=== PATIENT | female | born 1975 | race Caucasian/White ===

== ENCOUNTER 2016-05-07 17:22 | Observation (INO) | payer OTHER ==
[2016-05-07] MEDS ORDERED: HYDROmorphone 1 MG/ML 1 ML SYRINGE IVP STA (18:47)
[2016-05-07] MEDS ORDERED: PROCHLORPERAZINE 5 MG TAB PO STA (18:47)
[2016-05-07] MEDS ORDERED: SODIUM CHLORIDE 0.9% 500 ML IV STA (18:47)
[2016-05-07 19:30] LABS: Anion Gap 9 mmol/L; Blood Urea Nitrogen 13 mg/dL (7-17); Calcium 9.5 mg/dL (8.4-10.2); Carbon Dioxide 22 mmol/L (22-30); Chloride 109 mmol/L (98-107); Glucose 99 mg/dL (74-99); Magnesium 2.3 mg/dL (1.6-2.3); Non-African American GFR(MDRD) >60 (>60 ml/min/1.73 sqM); Potassium 4.5 mmol/L (3.5-5.1); Sodium 140 mmol/L (137-145)
[2016-05-07] MEDS ORDERED: ONDANSETRON 4 MG/2 ML VIAL IVP STA (20:44)
--- NOTE | 2016-05-07 21:28 | CT ---
EXAMINATION TYPE: CT brain wo con DATE OF EXAM: 05/07/2016 9:18 PM COMPARISON: 08/22/2014 HISTORY: PT STATES OF MIGRAINE WITH VOMITING TODAY. CT DLP: 986.7 mGycm Automated exposure control for dose reduction was used. FINDINGS: Ventricles have normal size. There is a 2.5 x 1.5 cm area of hypodensity in the medial right occipita l lobe. There is no mass effect nor midline shift. There is no sign of intracranial hemorrhage. There is a 1.5 cm area of calcification within the medial posterior right occipital lobe convexity. The ca lvarium is intact.. IMPRESSION: There is right occipital lobe encephalomalacia with calcification that is stable compared to 5 and could relate to old infarct. This is also stable compared to 04/28/2011 CT scan. No acute intrac ranial abnormality.
--- NOTE | 2016-05-07 22:06 | ED ---
Headache HPI - General Chief Complaint: Headache Stated Complaint: Migraine Time Seen by Provider: 05/07/16 18:35 Mode of arrival: ambulatory Limitations: no limitations - History of Present Illness Initial Comments: Patient complains of a headache, as well as nausea or vomiting. She has a history of migraines. However, she feels like this is different from usual. The headache came on gradually. She does feel like this is as bad as her headaches normally get, however it is not any worse than usual. She has no change in vision or hearing. She has no neck pain or stiffness. She has no belly or back pain. She states the pain is worse with lights and loud noises. She has no trauma. She has no weakness. She has no trouble walking. - Related Data Home Medications Medication Instructions Recorded Confirmed Dextroamphetamine/Amphetamine 20 mg PO BID 08/22/14 05/07/16 [Adderall] Ibuprofen [Motrin] 600 mg PO Q6HR PRN 05/07/16 05/07/16 Topiramate [Topamax] 75 mg PO HS 05/07/16 05/07/16 Allergies Allergy/AdvReac Type Severity Reaction Status Date / Time No Known Allergies Allergy Verified 05/07/16 19:17 Review of Systems ROS Statement: Those systems with pertinent positive or pertinent negative responses have been documented in the HPI. ROS Other: All systems not noted in ROS Statement are negative. Past Medical History Past Medical History: CVA/TIA, GERD/Reflux, Thyroid Disorder Additional Past Medical History / Comment(s): MANY PROBLEMS SINCE A-V MALFORMATION WAS DISCOVERED: CHRONIC HEADACHES, STROKES, LOSS OF PERIPHERAL VISION. RECENTLY HAVING DIARRHEA/CONSTIPATION, NAUSEA, ABD PAIN, WT LOSS.. HX: PEPTIC ULCER. THYROID NODULES. HAS SOME DAMAGE FROM GAMMA KNIFE PROCEDURE. migraine History of Any Multi-Drug Resistant Organisms: None Reported Past Surgical History: Cholecystectomy Additional Past Surgical History / Comment(s): TREATMENT OF A-V MALFORMATION with a gamma knife Past Anesthesia/Blood Transfusion Reactions: Motion Sickness Past Psychological History: Depression Smoking Status: Current every day smoker Past Alcohol Use History: None Reported Past Drug Use History: None Reported General Exam Limitations: no limitations General appearance: alert, in no apparent distress Head exam: Present: atraumatic, normocephalic, normal inspection Eye exam: Present: normal appearance, PERRL, EOMI. Absent: scleral icterus, conjunctival injection, periorbital swelling ENT exam: Present: normal exam, mucous membranes moist Neck exam: Present: normal inspection. Absent: tenderness, meningismus, lymphadenopathy Respiratory exam: Present: normal lung sounds bilaterally. Absent: respiratory distress, wheezes, rales, rhonchi, stridor Cardiovascular Exam: Present: regular rate, normal rhythm, normal heart sounds. Absent: systolic murmur, diastolic murmur, rubs, gallop, clicks GI/Abdominal exam: Present: soft, normal bowel sounds. Absent: distended, tenderness, guarding, rebound, rigid Extremities exam: Present: normal inspection, full ROM, normal capillary refill. Absent: tenderness, pedal edema, joint swelling, calf tenderness Back exam: Present: normal inspection Neurological exam: Present: alert, oriented X3, CN II-XII intact Psychiatric exam: Present: normal affect, normal mood Skin exam: Present: warm, dry, intact, normal color. Absent: rash Course Vital Signs 05/07/16 17:34 Temperature 98.2 F Pulse Rate 82 Respiratory 18 Rate Blood Pressure 126/81 O2 Sat by Pulse 99 Oximetry Medical Decision Making - Medical Decision Making Patient presents with a severe headache. I do not believe she has an intracranial bleed, but this could be related to a mass. CAT scan of the head does not reveal any acute processes. Laboratory studies are within acceptable limits at this time. She is given multiple doses of antiemetics, as well as IV fluids and pain medication. She is not feeling any better. She continues to vomit in the emerge department. She will require admission overnight. - Lab Data Result diagrams: 05/07/16 19:01 Lab Results 05/07/16 Range/Units 19:01 Sodium 140 (137-145) mmol/L Potassium 4.5 (3.5-5.1) mmol/L Chloride 109 H (98-107) mmol/L Carbon Dioxide 22 (22-30) mmol/L Anion Gap 9 mmol/L BUN 13 (7-17) mg/dL Creatinine 0.87 (0.52-1.04) mg/dL Est GFR (MDRD) Af Amer >60 (>60 ml/min/1.73 sqM) Est GFR (MDRD) Non-Af >60 (>60 ml/min/1.73 sqM) Glucose 99 (74-99) mg/dL Calcium 9.5 (8.4-10.2) mg/dL Magnesium 2.3 (1.6-2.3) mg/dL Disposition Clinical Impression: Headache, Nausea and vomiting Disposition: ADMITTED IP TO THIS HOSP Condition: Fair Time of Disposition: 22:06
[2016-05-07] MEDS ORDERED: PROCHLORPERAZINE 5 MG TAB PO PRN (22:10)
[2016-05-07] MEDS ORDERED: NALOXONE 0.4 MG/ML 1 ML VIAL IV PRN (22:10)
[2016-05-07 22:13] LABS: Basophils % (A) 1 %; CHCM 34.6; Eosinophils # (A) 0.1 k/uL (0-0.7); Eosinophils % (A) 1 %; HCT 40.7 % (34.0-46.0); HGB 13.8 gm/dL (11.4-16.0); Luc # (Auto) 0.06; Luc % (Auto) 1; Lymphocytes # (A) 1.5 k/uL (1.0-4.8); Lymphocytes % (A) 20 %; MCH 31.4 pg (25.0-35.0); MCHC 33.8 g/dL (31.0-37.0); MCV 92.7 fL (80.0-100.0); Mean Platelet Volume 7.9; Monocytes # (A) 0.2 k/uL (0-1.0); Monocytes % (A) 3 %; Neutrophils # (A) 5.6 k/uL (1.3-7.7); Neutrophils % (A) 75 %; RBC 4.39 m/uL (3.80-5.40); RDW 12.4 % (11.5-15.5); WBC 7.4 k/uL (3.8-10.6); WBC (Perox) 7.93
[2016-05-07 23:37] VITALS: BMI 26.6
[2016-05-07] MEDS: MORPHINE SULFATE 4 MG/ML SYRINGE IV PRN (23:43)
[2016-05-08] MEDS: LORazepam 2 MG/ML SYRINGE IV PRN ×2 (00:11→20:47)
[2016-05-08] MEDS ORDERED: ONDANSETRON 4 MG/2 ML VIAL IVP PRN (08:18)
[2016-05-08] MEDS ORDERED: NON-FORMULARY DRUG (Dextroamphetamine/Amphetamine [Adderall] 20 MG) PO SCH (09:00)
[2016-05-08] MEDS: MORPHINE SULFATE 4 MG/ML SYRINGE IV PRN ×3 (10:01→20:46)
[2016-05-08] MEDS: FAMOTIDINE 20 MG TAB PO SCH ×2 (10:01→20:48)
--- NOTE | 2016-05-08 13:50 | P.HPIM ---
History of Present Illness H&P Date: 05/08/16 Chief Complaint: Severe headache with nausea and vomiting This is a 40-year-old female, patient of Dr. Mancia. 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 Also history of stroke, nicotine dependence , GERD and hypothyroidism. Patient states that she follows up at [facility] neurology for her migraines. In about a month ago she was started on Topamax. She reports over the last week's her headache has been more severe and she started having vomiting and nausea. She's having sensitivity to light and sound. She also started having facial numbness on the left side of her face and around her mouth and nose. When she contacted [facility] they felt the numbness and also some tingling in the hands and feet could be related to the Topamax. They are trying to wean her off of the Topamax. She denies any chest pain or shortness of breath.. Denies any bowel movement changes or urinary symptoms. Patient admitted to the observation unit. Neurology consulted. She had a computed tomography scan of the brain showing right occipital lobe encephalomalacia with calcification that is stable compared to 08/22/2014 and could relate to old infarct. No acute intracranial abnormality Review of Systems Please refer to HPI otherwise unremarkable Past Medical History Past Medical History: CVA/TIA, GERD/Reflux, Thyroid Disorder Additional Past Medical History / Comment(s): MANY PROBLEMS SINCE A-V MALFORMATION WAS DISCOVERED: CHRONIC HEADACHES, STROKES, LOSS OF PERIPHERAL VISION, HX:PEPTIC ULCER. THYROID NODULES. HAS SOME DAMAGE FROM GAMMA KNIFE PROCEDURE. SPENT FROM AGE 12 TO 17 IN [facility], [place] History of Any Multi-Drug Resistant Organisms: None Reported Past Surgical History: Cholecystectomy Additional Past Surgical History / Comment(s): TREATMENT OF A-V MALFORMATION with a gamma knife Past Anesthesia/Blood Transfusion Reactions: No Reported Reaction, Motion Sickness Past Psychological History: Depression Smoking Status: Current every day smoker Past Alcohol Use History: None Reported Past Drug Use History: None Reported - Past Family History Father Family Medical History: Congestive Heart Failure (CHF), Myocardial Infarction ( [place]) Mother Family Medical History: Diabetes Mellitus, Myocardial Infarction ([place]) Medications and Allergies Home Medications Medication Instructions Recorded Confirmed Type Dextroamphetamine/Amphetamine 20 mg PO BID 08/22/14 05/07/16 History [Adderall] Ibuprofen [Motrin] 600 mg PO Q6HR PRN 05/07/16 05/07/16 History Topiramate [Topamax] 75 mg PO HS 05/07/16 05/07/16 History Allergies Allergy/AdvReac Type Severity Reaction Status Date / Time No Known Allergies Allergy Verified 05/07/16 23:26 Physical Exam Vitals: Vital Signs Temp Pulse Pulse Resp BP BP Pulse Ox 05/08/16 12:00 98.6 F 76 14 103/66 96 05/08/16 08:00 97.7 F 70 18 105/68 97 05/08/16 04:00 97.7 F 68 16 115/68 95 05/07/16 23:47 16 05/07/16 23:10 98.4 F 80 16 146/87 99 Intake and Output 05/07/16 05/08/16 05/08/16 22:59 06:59 14:59 Intake Total 360 Balance 360 Intake: Oral 360 Other: Voiding Method Toilet # Voids 1 Weight 77.1 kg Head normocephalic. Tenderness with palpation of the back of the head Neck supple Lungs clear to auscultation bilaterally no wheezing or crackles Heart regular rate and rhythm S1-S2, no rub or gallop Abdomen is soft nontender nondistended positive bowel sounds no hepatosplenomegaly Extremities no edema Neuro alert and orientated to 3 Results CBC & Chem 7: 05/07/16 19:01 05/07/16 19:01 Thrombosis Risk Factor Assmnt - Choose All That Apply Any of the Below Risk Factors Present?: No Other Risk Factors: No Other congenital or acquired thrombophilia - If yes, enter type in comment: No Thrombosis Risk Factor Assessment Level: Very Low Risk Assessment and Plan Plan: 1. Migraine headaches with nausea and vomiting: Neurology has been consulted. Computed tomography scan of the brain shows no acute intracranial abnormality. It does reveal right occipital lobe encephalomalacia with calcification that is stable compared to prior studies and could relate to old infarct. Patient started on Topamax a month ago by [facility] neurologists. They're weaning her off of this medication now due to side effects. Continue with [place] and IV morphine as needed for pain control. 2. Nausea and vomiting improved continue with Zofran as needed 3. History of CVA 4. History of nicotine dependence. Patient was smokes a few cigarettes a day. Discussed with patient for greater than 3 minutes the importance of smoking cessation 5. History of AV malformation of the brain as a child requiring gamma knife treatment GI prophylaxis Pepcid and DVT prophylaxis subcu heparin Time with Patient: Greater than 30 (Greater than 50% of the total time spent in counseling and coordination of care.I performed an examination of the patient and discussed their management with the physician [employer]. I have reviewed the Physician [employer]'s notes and agree with the documented findings and plan of care)
--- NOTE | 2016-05-08 16:59 | P.CNNES ---
History of Present Illness Consult date: 05/08/16 Reason for Consult: Patient with intractable headaches and occipital headaches. History of Present Illness: This patient is a 40-year-old right-handed white female who was admitted to hospital yesterday with symptoms of severe headache pain and numbness. Patient has an extensive past medical history including migraine headaches and AVM malformation in the past. Patient was diagnosed with an AVM at age 14 and was initially [facility] in [place]. She was subsequently referred to neurosurgery and underwent gamma knife treatment for AVM about 20 years ago. Apparently she suffered a stroke during one of these procedures. She does have evidence of encephalomalacia on CAT scan of the brain. Patient has been following recently with the neurology department at the [facility] for management of her migraines. She has been there since 2014. She was advised about a month ago to start on Topamax for treatment of her migraines. Apparently in the last week she developed severe numbness involving her face and tongue and mouth region as well as the hands. She contacted the [facility] would advise her to wean off of Topamax and go to the ER. For this reason she was seen in the ER yesterday. She underwent a computed tomography scan of the brain which revealed evidence of right occipital lobe encephalomalacia with calcification. This CAT scan was unchanged from previous study done on 08/22/2014. There was area of old infarction noted and remained stable over the years. There was no evidence of acute stroke or hemorrhage. Patient states she has been unable to get back to the [facility] neurology department in terms of her headache management. She was seen there about 6 months ago. She states that she does not want to start back on Topamax that she feels her symptoms of numbness especially involving the facial area mouth and lips are probably secondary to this new medication. Patient has been very frustrated with her overall neurological history dating back to age 14. She has been to several centers. She states that her headache pain currently is mostly on the left side. She describes it as a pounding and sharp pain at times. The left side is much more involved than the right side. On examination today she is noted to have evidence of bilateral occipital neuritis. She states she hasn't difficulty with this symptoms in the past. Years ago she did undergo some nerve blocks and trigger point injections to the back and neck area and treatment. Patient states her current headache pain is about 8/10 in intensity. Due to the left temporal lobe being the major site of the headache pain laboratory testing was done today for further evaluation for temporal arteritis. Her sed rate came back normal at 8.0. C-reactive protein was noted to be less than 5.0. We reviewed the results of these 2 laboratory test and do not feel she has temporal arteritis. She was treated for her pain with Dilaudid and morphine. This does help somewhat but her symptoms persist mostly as noted on the left side. We have suggested the patient to undergo the occipital nerve block procedure for treatment of occipital neuritis. Hopefully this is the main contributing factor for her history of recent headache pain. Previously she was using Motrin for treatment of her migraines in the past. Topamax was the recent new addition which was suggested by the [facility] neurology clinic. We have recommended the patient should follow-up with the [facility] in the neurology clinic for further management. Apparently she underwent a MRI of the brain through the [facility] last year. She is unclear as to the final recommendations based on that MRI report. For the immediate management of her condition we will wait for anesthesia to perform bilateral occipital nerve block procedure and hopefully be able to have the patient discharged and to follow-up with [facility] neurology clinic. These findings were reviewed with the patient today in detail. She did not appear to be in severe pain during her entire examination at this time. Her pain level on examination of the suboccipital region however she rates as 9/10 on the left and 8/10 on the right. The patient is now admitted and neurology has been consulted for further evaluation and recommendations. Review of Systems Constitutional: Denies chills, Denies fever Eyes: denies blurred vision, denies pain Ears, nose, mouth and throat: Denies headache, Denies sore throat Cardiovascular: Denies chest pain, Denies shortness of breath Respiratory: Denies cough Gastrointestinal: Denies abdominal pain, Denies diarrhea, Denies nausea, Denies vomiting Genitourinary: Denies dysuria, Denies hematuria Musculoskeletal: Denies myalgias Integumentary: Denies pruritus, Denies rash Neurological: Reports headaches, Reports loss of vision, Denies numbness, Denies weakness Psychiatric: Denies anxiety, Denies depression Endocrine: Denies fatigue, Denies weight change Past Medical History Past Medical History: CVA/TIA, GERD/Reflux, Thyroid Disorder Additional Past Medical History / Comment(s): MANY PROBLEMS SINCE A-V MALFORMATION WAS DISCOVERED: CHRONIC HEADACHES, STROKES, LOSS OF PERIPHERAL VISION, HX:PEPTIC ULCER. THYROID NODULES. HAS SOME DAMAGE FROM GAMMA KNIFE PROCEDURE. SPENT FROM AGE 12 TO 17 IN [facility], [place] History of Any Multi-Drug Resistant Organisms: None Reported Past Surgical History: Cholecystectomy Additional Past Surgical History / Comment(s): TREATMENT OF A-V MALFORMATION with a gamma knife Past Anesthesia/Blood Transfusion Reactions: No Reported Reaction, Motion Sickness Past Psychological History: Depression Smoking Status: Current every day smoker Past Alcohol Use History: None Reported Past Drug Use History: None Reported - Past Family History Father Family Medical History: Congestive Heart Failure (CHF), Myocardial Infarction ( [place]) Mother Family Medical History: Diabetes Mellitus, Myocardial Infarction ([place]) Medications and Allergies Home Medications Medication Instructions Recorded Confirmed Type Dextroamphetamine/Amphetamine 20 mg PO BID 08/22/14 05/07/16 History [Adderall] Ibuprofen [Motrin] 600 mg PO Q6HR PRN 05/07/16 05/07/16 History Topiramate [Topamax] 75 mg PO HS 05/07/16 05/07/16 History Allergies Allergy/AdvReac Type Severity Reaction Status Date / Time No Known Allergies Allergy Verified 05/07/16 23:26 Physical Examination - Vital Signs Vital Signs: Vital Signs Temp Pulse Pulse Resp BP BP Pulse Ox 05/08/16 16:00 98.9 F 81 16 96/61 96 05/08/16 12:00 98.6 F 76 14 103/66 96 05/08/16 08:00 97.7 F 70 18 105/68 97 05/08/16 04:00 97.7 F 68 16 115/68 95 05/07/16 23:47 16 05/07/16 23:10 98.4 F 80 16 146/87 99 Intake and Output 05/08/16 05/08/16 05/08/16 06:59 14:59 22:59 Intake Total 600 Balance 600 Intake: Oral 600 Other: Voiding Method Toilet # Voids 1 Weight 77.1 kg - Constitutional General appearance: average body habitus, cooperative - EENT EENT: mucous membranes moist - Respiratory Respiratory: lungs clear, normal breath sounds - Cardiovascular Cardiovascular: regular rate, normal S1, normal S2 Extremities: no peripheral edema bilaterally - Gastrointestinal Gastrointestinal: normoactive bowel sounds - Integumentary Integumentary: normal - Neurologic Cranial nerve examination: PERRL, EOMI, VFF, V1/V2/V3 grossly intact, face symmetric, tongue midline, intact gag reflex, intact corneal reflex, normal palatal elevation Speech examination: intact Sensorimotor examination: intact Detailed motor examination: grossly full strength in all extremities Motor examination - right side: 5/5: biceps, triceps, wrist flexion, wrist extension, farm mechanic, hip flexors, knee extensors, dorsiflexion, toe extension (EHL) , plantarflexion Motor examination - left side: 5/5: biceps, triceps, wrist flexion, wrist extension, farm mechanic, hip flexors, knee extensors, dorsiflexion, toe extension (EHL) , plantarflexion Detailed sensory examination: intact Reflex and gait examination: intact Reflexes: 1+: ankle, bicep, knee, tricep - Musculoskeletal Musculoskeletal: no pain - Psychiatric Psychiatric: mood/affect appropriate, cooperative Results - Laboratory Findings CBC and BMP: 05/07/16 19:01 05/07/16 19:01 Assessment and Plan (1) Migraine headache Status: Acute Code(s): G43.909 - MIGRAINE, UNSP, NOT INTRACTABLE, WITHOUT STATUS MIGRAINOSUS (2) Arteriovenous malformation of brain Status: Acute Code(s): Q28.2 - ARTERIOVENOUS MALFORMATION OF CEREBRAL VESSELS (3) Status post gamma knife treatment Status: Acute Code(s): Z92.3 - PERSONAL HISTORY OF IRRADIATION (4) Occipital neuritis Status: Acute Code(s): M54.81 - OCCIPITAL NEURALGIA Plan: This patient is a 40-year-old female was admitted to hospital with history of migraine headaches and recent history of recurrent left-sided headache pain and numbness. Patient's been noticing increased numbness in the mouth and facial area as well as worsening left-sided occipital headache pain. She has been treated for her headaches at several institutions most recently at the [facility] neurology department. She was seen there about 6 months ago and has been following there since 2015. She has a history of AVM malformation of the brain for which she underwent gamma knife treatment about 20 years ago. More recently she has been evaluated and treated for headaches through the [facility] neurology clinic. Should she was advised to start on Topamax about a month ago by her neurologist at the [facility]. Apparently with the increased numbness and tingling in the hands feet and face and mouth area the neurologist advised the patient to wean off of the Topamax and to go to the emergency room. Patient was admitted through the ER yesterday. At this time neurology was consulted. Her neurological examination at this time reveals her to have evidence of bilateral occipital neuritis worse on the left. We are recommending she undergo occipital nerve block procedure by anesthesia for further treatment. We would recommend that she should follow-up with her neurologist at the [facility] soon after discharge for further management of her multiple complex past medical history and recent MRI findings. Patient underwent computed tomography scan of the brain on admission to the hospital yesterday. Results are as noted above. No acute intracranial abnormality was noted. CAT scan appears stable as compared to 2014 and 2011. Patient is to continue with analgesics as needed for pain management. Hopefully with the nerve block procedure the pain control should be much improved. Hopefully patient can be discharged home after this procedure is done tomorrow. Her overall prognosis at this time remains guarded. We have recommended she should follow-up with her regular neurologist soon after discharge from the hospital. Her overall condition at this time remains guarded. Time with Patient: Greater than 30
[2016-05-08] MEDS: HYDROcodone/APAP 5-325MG 1 EACH TAB PO PRN (18:17)
[2016-05-08] MEDS: HEPARIN SODIUM,PORCINE 5,000 UNIT/ML 1 ML VIAL SQ SCH (20:41)
[2016-05-08] MEDS: TEMAZEPAM 15 MG CAP PO PRN (20:48)
[2016-05-08] MEDS ORDERED: TOPIRAMATE 25 MG TAB PO SCH (21:00)
[2016-05-09 07:00] LABS: Basophils % (A) 1 %; CH 32.1; CHCM 34.3; Eosinophils # (A) 0.2 k/uL (0-0.7); Eosinophils % (A) 2 %; HCT 39.3 % (34.0-46.0); HDW 2.73; Luc # (Auto) 0.09; Luc % (Auto) 2; Lymphocytes # (A) 1.8 k/uL (1.0-4.8); Lymphocytes % (A) 29 %; MCH 31.1 pg (25.0-35.0); MCHC 33.1 g/dL (31.0-37.0); MCV 93.9 fL (80.0-100.0); Mean Platelet Volume 8.3; Monocytes # (A) 0.3 k/uL (0-1.0); Monocytes % (A) 4 %; Neutrophils # (A) 3.9 k/uL (1.3-7.7); Neutrophils % (A) 62 %; RBC 4.19 m/uL (3.80-5.40); RDW 12.6 % (11.5-15.5); WBC 6.3 k/uL (3.8-10.6); WBC (Perox) 6.91
[2016-05-09 07:13] LABS: ALT 21 U/L (9-52); AST 14 U/L (14-36); Alkaline Phosphatase 49 U/L (38-126); Anion Gap 7 mmol/L; Blood Urea Nitrogen 15 mg/dL (7-17); Calcium 9.1 mg/dL (8.4-10.2); Carbon Dioxide 23 mmol/L (22-30); Chloride 111 mmol/L (98-107); Glucose 89 mg/dL (74-99); Non-African American GFR(MDRD) >60 (>60 ml/min/1.73 sqM); Potassium 4.3 mmol/L (3.5-5.1); Sodium 141 mmol/L (137-145); Total Bilirubin 0.3 mg/dL (0.2-1.3); Total Protein 6.4 g/dL (6.3-8.2)
[2016-05-09] MEDS ORDERED: BUPIVACAINE (PF) 0.25% 30 ML VIAL MISCELLANE ONE (08:30)
[2016-05-09] MEDS: FAMOTIDINE 20 MG TAB PO SCH ×2 (08:42→21:11)
[2016-05-09] MEDS: HEPARIN SODIUM,PORCINE 5,000 UNIT/ML 1 ML VIAL SQ SCH ×2 (08:43→21:07)
[2016-05-09] MEDS: HYDROcodone/APAP 5-325MG 1 EACH TAB PO PRN ×2 (08:43→18:52)
--- NOTE | 2016-05-09 10:43 | P.CON ---
Consult Note - . Assessment/Plan:: therapeutic bilateral occipital nerve block performed with 15 cc of quarter percent bupivacaine plain; aseptic technique used ; minimal pain elicited; patient tolerated the procedure well; no sedation given
[2016-05-09] MEDS: MORPHINE SULFATE 4 MG/ML SYRINGE IV PRN ×2 (15:14→21:11)
--- NOTE | 2016-05-09 16:35 | P.PN ---
Subjective Principal diagnosis: Headache and vomiting Patient is a 40-year-old female admitted to [facility] due to headache and vomiting Patient has a complex past medical history including AVM with gamma knife therapy at age 17 History of CVA in the past Chronic headache followed at [facility] Complete history is available in the H&P Since yesterday patient underwent occipital block She reports improvement in her neck pain and her headache She is still complaining of nausea but no vomiting since yesterday Objective - Vital Signs Vital signs: Vital Signs Temp 97.6 F 05/09/16 10:34 Pulse 70 05/09/16 10:34 Resp 16 05/09/16 10:34 BP 119/64 05/09/16 10:34 Pulse Ox 97 05/09/16 10:34 Intake & Output 05/08/16 05/09/16 05/09/16 18:59 06:59 18:59 Intake Total 600 420 Balance 600 420 Intake: Oral 600 420 Other: Voiding Method Toilet Toilet Toilet # Voids 1 - Exam HEENT head normocephalic and atraumatic Neck is supple no JVD no goiter Chest is clear to auscultation Cardiac exam reveals regular heart sounds no murmurs Abdomen is soft nontender no organomegaly Extremity exam reveals no edema - Labs CBC & Chem 7: 05/09/16 06:35 05/09/16 06:35 Labs: Abnormal Lab Results - Last 24 Hours (Table) 05/09/16 Range/Units 06:35 Chloride 111 H (98-107) mmol/L Assessment and Plan Plan: 1. Migraine headaches with nausea and vomiting: Neurology has been consulted. Computed tomography scan of the brain shows no acute intracranial abnormality. It does reveal right occipital lobe encephalomalacia with calcification that is stable compared to prior studies and could relate to old infarct. Patient started on Topamax a month ago by [facility] neurologists. They're weaning her off of this medication now due to side effects. Continue with [place] and IV morphine as needed for pain control. 2. Nausea and vomiting improved continue with Zofran as needed 3. History of CVA 4. History of nicotine dependence. Patient was smokes a few cigarettes a day. Discussed with patient for greater than 3 minutes the importance of smoking cessation 5. History of AV malformation of the brain as a child requiring gamma knife treatment at age 17 Patient underwent occipital injections since yesterday continue was current medication will recheck in a.m.
--- NOTE | 2016-05-09 19:14 | P.PN ---
Subjective This patient is a 40-year-old female who was admitted to Hospital for symptoms of recurrent headache and vomiting. She has a complex past medical history including history of AVM and stroke. She underwent gamma knife therapy for the AVM at age 17. She is been followed at the [facility] in the neurology clinic for treatment of her headaches. She was started on Topamax about 1 month ago for treatment of the migraine headaches. She developed numbness and paresthesias and was advised to discontinue use of Topamax. On neurological examination yesterday she had evidence of bilateral occipital neuritis. She was recommended to undergo occipital nerve block procedure. Patient was seen by anesthesia today and underwent bilateral occipital nerve block. Patient reports some improvement with the headaches and only has mild nausea symptoms at this time. She has not had any further vomiting. She has responded well to the initial nerve block. She should continue see improvement over the next 24-48 hours. She does continue to use pain medications but has noted some improvement in her overall condition today. We will continue close neurological follow-up with the patient. Overall prognosis remains guarded due to the complex multiple medical conditions in her past history. Objective - Vital Signs Vital signs: Vital Signs Temp 98.0 F 05/09/16 16:00 Pulse 80 05/09/16 16:00 Resp 16 05/09/16 16:00 BP 104/69 05/09/16 16:00 Pulse Ox 96 05/09/16 16:00 Intake & Output 05/09/16 05/09/16 05/10/16 06:59 18:59 06:59 Intake Total 660 480 Balance 660 480 Intake: Oral 660 480 Other: Voiding Method Toilet Toilet # Voids 1 - Exam Physical examination: PHYSICAL EXAMINATION: Patient is resting comfortably in bed. VITAL SIGNS: Blood pressure is [104/69]. Heart rate is [80]. Respiration is [16] . Temperature is [98.0]. HEENT: Head is atraumatic, neck is supple, there were no carotid bruits. CHEST: Lungs are clear to auscultation and percussion. CARDIAC: S1, S2 normal rate and rhythm. There is no murmur. ABDOMEN: Soft and nontender. Bowel sounds are present. EXTREMITIES: There is no pedal edema. Peripheral pulses are present. Neurological examination: Patient has a nonfocal neurological exam. - Labs CBC & Chem 7: 05/09/16 06:35 05/09/16 06:35 Labs: Abnormal Lab Results - Last 24 Hours (Table) 05/09/16 Range/Units 06:35 Chloride 111 H (98-107) mmol/L Assessment and Plan (1) Migraine headache Status: Acute Code(s): G43.909 - MIGRAINE, UNSP, NOT INTRACTABLE, WITHOUT STATUS MIGRAINOSUS (2) Arteriovenous malformation of brain Status: Acute Code(s): Q28.2 - ARTERIOVENOUS MALFORMATION OF CEREBRAL VESSELS (3) Status post gamma knife treatment Status: Acute Code(s): Z92.3 - PERSONAL HISTORY OF IRRADIATION (4) Occipital neuritis Status: Acute Code(s): M54.81 - OCCIPITAL NEURALGIA Plan: This patient is a 40-year-old female admitted with symptoms of headache and vomiting. She has a complex past medical history with multiple medical problems including history of AVM, stroke, and recurrent migraine headaches. She was admitted for recurrent headache pain. She was seen by anesthesia today and did undergo bilateral occipital nerve block procedure. This has helped improve the neck pain and headache pain. We will continue close monitoring of her condition. If she continues to show improvement over the next 24 hours she may be considered for discharge home. She should follow-up with her neurologist at the [facility] with been treating her for her complex migraine history. Her overall prognosis at this time remains guarded.
[2016-05-09] MEDS: TEMAZEPAM 15 MG CAP PO PRN (21:11)
[2016-05-09] MEDS: LORazepam 2 MG/ML SYRINGE IV PRN (21:12)
[2016-05-10 07:23] LABS: Basophils % (A) 1 %; CH 32.1; CHCM 34.9; Eosinophils # (A) 0.2 k/uL (0-0.7); Eosinophils % (A) 3 %; HCT 38.6 % (34.0-46.0); HDW 2.63; Luc # (Auto) 0.12; Luc % (Auto) 2; Lymphocytes # (A) 1.8 k/uL (1.0-4.8); Lymphocytes % (A) 31 %; MCHC 33.6 g/dL (31.0-37.0); MCV 92.4 fL (80.0-100.0); Mean Platelet Volume 7.7; Monocytes # (A) 0.3 k/uL (0-1.0); Monocytes % (A) 6 %; Neutrophils # (A) 3.3 k/uL (1.3-7.7); Neutrophils % (A) 58 %; RBC 4.18 m/uL (3.80-5.40); RDW 12.4 % (11.5-15.5); WBC 5.7 k/uL (3.8-10.6); WBC (Perox) 5.79
[2016-05-10 07:34] LABS: ALT 26 U/L (9-52); AST 15 U/L (14-36); Alkaline Phosphatase 45 U/L (38-126); Anion Gap 7 mmol/L; Blood Urea Nitrogen 13 mg/dL (7-17); Carbon Dioxide 25 mmol/L (22-30); Chloride 108 mmol/L (98-107); Glucose 86 mg/dL (74-99); Non-African American GFR(MDRD) >60 (>60 ml/min/1.73 sqM); Potassium 4.3 mmol/L (3.5-5.1); Sodium 140 mmol/L (137-145); Total Bilirubin 0.3 mg/dL (0.2-1.3); Total Protein 6.2 g/dL (6.3-8.2)
[2016-05-10] MEDS: FAMOTIDINE 20 MG TAB PO SCH (09:00)
[2016-05-10] MEDS ORDERED: IBUPROFEN 800 MG TAB PO SCH (09:00)
[2016-05-10] MEDS: HEPARIN SODIUM,PORCINE 5,000 UNIT/ML 1 ML VIAL SQ SCH (09:02)
[2016-05-10] MEDS: MORPHINE SULFATE 4 MG/ML SYRINGE IV PRN (13:02)
[2016-05-10 16:24] VITALS: BP 114/73; PULSE 80; RESP 18; TEMP 97.8
--- NOTE | 2016-05-10 16:40 | P.DS ---
Providers Date of admission: 05/07/16 22:06 Expected date of discharge: 05/10/16 Attending physician: Jacques Ha Consults: 05/07/16 22:11 Consult Physician Routine Consulting Provider: Faina Albarran Consult Reason/Comments: headache Do you want consulting provider notified?: Yes 05/09/16 07:00 Consult Anesthesia Urgent Consulting Provider: Anesthesia,Services Consult Reason/Comments: Bilateral occipital nerve block procedure for headaches. Primary care physician: Natalee Mancia Hospital Course: Diagnosis on discharge #1 severe intractable headache #2 neck pain #3 intractable nausea and vomiting #4 previous history of CVA in the past #5 previous history of AVM with gamma knife treatment at age 17 #6 tobacco use #7 underlying history of migraine headache Hospital course patient is a 14-year-old female who presented to [facility] emergency room with severe intractable headache with nausea and vomiting patient was admitted to 24-hour observation she was seen by neurology Dr. Montoya she also underwent occipital block injection She was requiring IV morphine, [place], Ativan, and Zofran throughout this admission Patient was also complaining of facial numbness , Patient thinks that her symptoms were a side effect of Topamax which she has been weaned off as outpatient. Topamax was held throughout this admission patient felt better She was started on morphine sulfate extended release 15 mg twice daily She was also given a prescription for Ativan 0.5 mg every 8 hours when necessary And a prescription for Zofran 4 mg every 8 hours when necessary She will follow-up with her primary care physician Dr. Mancia within one week Patient was also encouraged to continue following with her neurologist at [facility] for further evaluation and treatment Patient Condition at Discharge: Fair Plan - Discharge Summary New Discharge Prescriptions: LORazepam [Ativan] 0.5 mg PO TID PRN #30 tab PRN Reason: Anxiety Morphine Sulfate ER [Ms Contin] 15 mg PO Q12HR #30 tab Ondansetron [Zofran] 4 mg PO Q8HR PRN #30 tab PRN Reason: Nausea Discharge Medication List Dextroamphetamine/Amphetamine [Adderall] 20 mg PO BID 08/22/14 [History] Ibuprofen [Motrin] 600 mg PO Q6HR PRN 05/07/16 [History] Famotidine [Pepcid] 20 mg PO BID tab 05/10/16 [Rx] LORazepam [Ativan] 0.5 mg PO TID PRN #30 tab 05/10/16 [Rx] Morphine Sulfate ER [Ms Contin] 15 mg PO Q12HR tablet 05/10/16 [Rx] Morphine Sulfate ER [Ms Contin] 15 mg PO Q12HR #30 tab 05/10/16 [Rx] Ondansetron [Zofran] 4 mg PO Q8HR PRN #30 tab 05/10/16 [Rx] Follow up Appointment(s)/Referral(s): Natalee Mancia MD [Primary Care Provider] - 1-2 days Patient Instructions/Handouts: Migraine Headache (GEN)
[2016-05-10] MEDS ORDERED: MORPHINE SULFATE ER 15 MG TABLET PO SCH (21:00)
== END 2016-05-10 16:36 | disposition home or self-care (01) ==
LOC: EC 17:22 → 3OBS 22:06
PROVIDERS: ADMIT Internal Medicine; ATTEND Internal Medicine
DX: R51 Headache (principal); G43.909 Migraine, unspecified, not intractable, without status migrainosus; M54.81 Occipital neuralgia; K21.9 Gastro-esophageal reflux disease without esophagitis; Z87.11 Personal history of peptic ulcer disease; Z90.49 Acquired absence of other specified parts of digestive tract; F32.9 Major depressive disorder, single episode, unspecified; F17.210 Nicotine dependence, cigarettes, uncomplicated; E03.9 Hypothyroidism, unspecified; Z82.49 Family history of ischemic heart disease and other diseases of the circulatory system; Z79.899 Other long term (current) drug therapy; Z86.73 Personal history of transient ischemic attack (TIA), and cerebral infarction without residual deficits; Z79.891 Long term (current) use of opiate analgesic
CPT/HCPCS: 96361 ×2; 96374 ×2; 96375 ×2; 99285 ×2; 36415; 64405; 80053 ×2; 80048; 85652; 83735; 85025 ×3; 86140; 87502; 70450; G0378 ×4; S0183; J2060 ×2; J2270 ×4; J1644 ×2; J2405 ×2; J1170; 96372; 96376

== ENCOUNTER → 2019-01-24 | Outpatient (CLI) | payer OTHER ==
--- NOTE | 2019-01-24 09:44 | CT ---
EXAMINATION TYPE: CT chest w con DATE OF EXAM: 01/24/2019 COMPARISON: Chest x-ray August 22, 2014 HISTORY: Arteriovenous malformation, site unspecified CT DLP: 206.90 mGycm. Automated Exposure Control for Dose Reduction was Utilized. TECHNIQUE: CT scan of the thorax is performed following with IV Contrast, patient injected with 100 ml mL of Isovue 300. FINDINGS: LUNGS: The lungs are grossly clear, there is no concerning parenchymal mass or nodule identified. T here is no pleural effusion or pneumothorax seen. The tracheobronchial tree is patent. MEDIASTINUM: There are no greater than 1 cm hilar or mediastinal lymph nodes. No cardiomegaly or pe ricardial effusion is seen. OTHER: Cholecystectomy clips are noted. Note is made of some narrowing at celiac artery origin ronnie al image 62 greater than 50% lumen diameter, adjacent measurement of 1.9 mm sagittal image 62 with po ststenotic measurement 5.3 mm. 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 Correlate clinically. No acute pulmonary process.
--- NOTE | 2019-01-24 10:00 | ECHOF ---
Referral Reason:Q27.30Arteriovenous malformation, site unspecified MEASUREMENTS -------- HEIGHT: 170.2 cm WEIGHT: 70.8 kg BP: 130/84 RVIDd: 2.7 cm (< 3.3) IVSd: 1.1 cm (0.6 - 1.1) LVIDd: 3.6 cm (3.9 - 5.3) LVPWd: 1.0 cm (0.6 - 1.1) IVSs: 1.4 cm LVIDs: 2.5 cm LVPWs: 1.5 cm LA Diam: 2.7 cm (2.7 - 3.8) LAESV Index (A-L): 15.52 ml/m Ao Diam: 3.0 cm (2.0 - 3.7) AV Cusp: 1.9 cm (1.5 - 2.6) MV EXCURSION: 12.234 mm (> 18.000) MV EF SLOPE: 73 mm/s (70 - 150) EPSS: 0.5 cm MV E Matt: 0.85 m/s MV DecT: 311 ms MV A Matt: 0.95 m/s MV E/A Ratio: 0.89 TAPSE: 21.87 mm FINDINGS -------- Sinus rhythm. This was a technically good study. The left ventricular size is normal. There is borderline concentric left ventricular hypertrophy. Overall left ventricular systolic function is normal with, an EF between 60 - 65 %. The right ventricle is normal in size. Normal LA size by volume 22+/-6 ml/m2. The right atrium is normal in size. Aneurysmal Interatrial septum. The aortic valve is trileaflet and appears structurally normal. There is trace mitral regurgitation. The tricuspid valve appears structurally normal. There is no pulmonic regurgitation present. The aortic root size is normal. Normal inferior vena cava with normal inspiratory collapse consistent with estimated right atrial pre ssure of 5 mmHg. There is no pericardial effusion. CONCLUSIONS -------- 1. Sinus rhythm. 2. This was a technically good study. 3. The left ventricular size is normal. 4. There is borderline concentric left ventricular hypertrophy. 5. Overall left ventricular systolic function is normal with, an EF between 60 - 65 %. 6. The right ventricle is normal in size. 7. Normal LA size by volume 22+/-6 ml/m2. 8. The right atrium is normal in size. 9. Aneurysmal Interatrial septum. 10. The aortic valve is trileaflet and appears structurally normal. 11. There is trace mitral regurgitation. 12. The tricuspid valve appears structurally normal. 13. There is no pulmonic regurgitation present. 14. The aortic root size is normal. 15. Normal inferior vena cava with normal inspiratory collapse consistent with estimated right atrial pressure of 5 mmHg. 16. There is no pericardial effusion. PLASTERER SPOT: Angelina Mendez RDCS
== END | disposition home or self-care (01) ==
LOC: RADCTMAIN 07:27
PROVIDERS: ATTEND Internal Medicine Sleep Medicine
DX: Q27.30 Arteriovenous malformation, site unspecified (principal); I51.7 Cardiomegaly; I25.3 Aneurysm of heart; I27.0 Primary pulmonary hypertension
CPT/HCPCS: 71260; 93306

== ENCOUNTER 2021-07-11 00:44 | Emergency (ER) | payer OTHER ==
[2021-07-11 00:53] VITALS: BP 166/92; PULSE 90; RESP 22; TEMP 98.5
--- NOTE | 2021-07-11 01:23 | XR ---
EXAMINATION TYPE: XR forearm RT DATE OF EXAM: 07/11/2021 COMPARISON: NONE HISTORY: Fall. Pain TECHNIQUE: 2 views FINDINGS: Radius and ulna appear intact. I see no fracture nor dislocation. Elbow joint and wrist shane nt appear intact. IMPRESSION: Negative left forearm exam. No fracture seen.
[2021-07-11] MEDS ORDERED: HYDROcodone/APAP 5-325MG 1 EACH TAB PO STA (01:43)
[2021-07-11] MEDS ORDERED: KETOROLAC 15 MG/ML 1 ML VIAL IM STA (01:43)
[2021-07-11] MEDS ORDERED: ACET/COD 300 MG/30 MG STARTER PACK 6 TAB BTL PO STA (01:44)
[2021-07-11] MEDS ORDERED: IBUPROFEN 600 MG STARTER PACK 4 TAB BTL PO STA (01:44)
[2021-07-11] MEDS ORDERED: DIPH,PERTUS(ACELL)TETVAC-LF 0.5 ML VIAL IM ONE (01:45)
--- NOTE | 2021-07-11 01:52 | ED ---
Upper Extremity HPI - General Chief Complaint: Extremity Injury, Upper Stated Complaint: Right arm injury Time Seen by Provider: 07/11/21 01:26 Source: patient Mode of arrival: ambulatory Limitations: no limitations - History of Present Illness Initial Comments: No headache, no fever or chills, no changes in vision or hearing, no sore throat or difficulty with speech, no neck pain, no chest pain or shortness of breath, no abdominal pain, no nausea or vomiting, no changes in urination or bowel movements, no numbness or tingling, no extremity pain, no skin rashes or lesions. MD Complaint: Injury to:: right - Related Data Home Medications Medication Instructions Recorded Confirmed Dextroamphetamine/Amphetamine 20 mg PO BID 08/22/14 05/07/16 [Adderall] Ibuprofen [Motrin] 600 mg PO Q6HR PRN 05/07/16 05/07/16 Previous Rx's Medication Instructions Recorded Famotidine [Pepcid] 20 mg PO BID tab 05/10/16 LORazepam [Ativan] 0.5 mg PO TID PRN #30 tab 05/10/16 Morphine Sulfate ER [Ms Contin] 15 mg PO Q12HR tablet 05/10/16 Morphine Sulfate ER [Ms Contin] 15 mg PO Q12HR #30 tab 05/10/16 Ondansetron [Zofran] 4 mg PO Q8HR PRN #30 tab 05/10/16 Ibuprofen [Motrin] 600 mg PO Q8HR PRN #30 tab 07/11/21 Allergies Allergy/AdvReac Type Severity Reaction Status Date / Time topiramate [From Topamax] Allergy Swelling Verified 07/11/21 00:53 Review of Systems ROS Statement: Those systems with pertinent positive or pertinent negative responses have been documented in the HPI. ROS Other: All systems not noted in ROS Statement are negative. Past Medical History Past Medical History: CVA/TIA, GERD/Reflux, Thyroid Disorder Additional Past Medical History / Comment(s): MANY PROBLEMS SINCE A-V MALFORMATION WAS DISCOVERED: CHRONIC HEADACHES, STROKES, LOSS OF PERIPHERAL VISION, HX:PEPTIC ULCER. THYROID NODULES. HAS SOME DAMAGE FROM GAMMA KNIFE PROCEDURE. SPENT FROM AGE 12 TO 17 IN [facility], MIGRAINS History of Any Multi-Drug Resistant Organisms: None Reported Past Surgical History: Cholecystectomy Additional Past Surgical History / Comment(s): TREATMENT OF A-V MALFORMATION with a gamma knife Past Anesthesia/Blood Transfusion Reactions: No Reported Reaction, Motion Sickness Past Psychological History: Depression Smoking Status: Current every day smoker Past Alcohol Use History: None Reported Past Drug Use History: None Reported - Past Family History Father Family Medical History: Congestive Heart Failure (CHF), Myocardial Infarction (GA) Mother Family Medical History: Diabetes Mellitus, Myocardial Infarction (GA) General Exam Limitations: no limitations General appearance: alert, in distress (Secondary to contusion) Head exam: Present: atraumatic, normocephalic, normal inspection Eye exam: Present: normal appearance, PERRL, EOMI. Absent: scleral icterus, conjunctival injection, periorbital swelling ENT exam: Present: normal exam, mucous membranes moist, TM's normal bilaterally Neck exam: Present: normal inspection. Absent: tenderness, meningismus, lymphadenopathy Respiratory exam: Present: normal lung sounds bilaterally. Absent: respiratory distress, wheezes, rales, rhonchi, stridor Cardiovascular Exam: Present: regular rate, normal rhythm, normal heart sounds. Absent: systolic murmur, diastolic murmur, rubs, gallop, clicks GI/Abdominal exam: Present: soft, normal bowel sounds. Absent: distended, tenderness, guarding, rebound, rigid Extremities exam: Present: tenderness (Patient has tenderness and edema to the flexor aspect of the right forearm. Very superficial abrasion with no bleeding. No bony point tenderness), normal capillary refill, other (No wrist or elbow tenderness. Pulses are intact, capillary refill less than 2 seconds). Absent: pedal edema, joint swelling, calf tenderness Back exam: Present: normal inspection. Absent: rash noted Neurological exam: Present: alert, oriented X3, CN II-XII intact, normal gait. Absent: motor sensory deficit Psychiatric exam: Present: normal affect, normal mood Skin exam: Present: warm, dry, normal color. Absent: intact (Superficial abrasion), rash, cyanosis, diaphoretic Course Vital Signs 07/11/21 00:47 Temperature 98.5 F Pulse Rate 90 Respiratory 22 Rate Blood Pressure 166/92 O2 Sat by Pulse 100 Oximetry Medical Decision Making - Medical Decision Making She presents to symptomology consistent with a significant contusion to her right forearm. There was a superficial abrasion. Patient's tetanus was updated. Patient was counseled on conservative therapy to include rice therapy. We did discuss the possibility of occult fracture although I believe this is unlikely as radiology as also read the x-ray as negative. Follow-up with orthopedics. Explained conservative therapy. Patient was told to return to the ER for any signs or symptoms worsen. Told to return immediately if any other problems arise. All questions answered. Treatment plan discussed. Patient in agreement Every effort has been made to ensure accuracy of this dictation. However, due to the limitations of electronic medical records and dictation devices, errors in charting still occur. Trigonometry Tutor Dr. Pack Disposition Clinical Impression: Contusion of right forearm, initial encounter, Abrasion of right forearm, initial encounter Disposition: HOME SELF-CARE Condition: Stable Instructions (If sedation given, give patient instructions): Hematoma (ED) Additional Instructions: Ice 20 minutes on and off for times daily. Take anti-inflammatory medication, ibuprofen, as directed. After the acetaminophen/codeine runs are you can change to regular Tylenol. Call and set up follow-up appointment with orthopedics. Follow-up with your regular physician as directed. Return to the ER immediately if any symptoms worsen, new symptoms arise, or any other problems develop. Is patient prescribed a controlled substance at d/c from ED?: No Referrals: Shon Sauceda DO [Doctor of Osteopathic Medicine] - 07/15/21 Time of Disposition: 01:47
== END 2021-07-11 02:08 | disposition home or self-care (01) ==
LOC: EC 00:44
DX: S50.11XA Contusion of right forearm, initial encounter (principal); S50.811A Abrasion of right forearm, initial encounter; Z86.73 Personal history of transient ischemic attack (TIA), and cerebral infarction without residual deficits; Z82.49 Family history of ischemic heart disease and other diseases of the circulatory system; Z23 Encounter for immunization; F17.200 Nicotine dependence, unspecified, uncomplicated; X58.XXXA Exposure to other specified factors, initial encounter; Z88.8 Allergy status to other drugs, medicaments and biological substances
CPT/HCPCS: 73090; 90715; 99283; 90471; J1885

== ENCOUNTER 2021-07-12 18:19 | Emergency (ER) | payer OTHER ==
[2021-07-12] MEDS ORDERED: KETOROLAC 15 MG/ML 1 ML VIAL IM STA (20:39)
--- NOTE | 2021-07-12 21:04 | ED ---
General Adult HPI - General Chief complaint: Recheck/Abnormal Lab/Rx Stated complaint: revisit - rt arm injury Time Seen by Provider: 07/12/21 20:16 Source: patient Mode of arrival: ambulatory Limitations: no limitations - History of Present Illness Initial comments: He is a 46-year-old female presenting with chief complaint of right arm pain and swelling. Patient states that yesterday she tripped and fell onto her stone fireplace, there was immediate swelling and bruising to the area. She was seen here in the ER, and found not to have any fracture. She was instructed to follow-up with her PCP and orthopedics. She is re-presenting because she suspects that there is actually a fracture due to her pain level and swelling. She states that she has some limited range of motion. She is also concerned that there is a blister over the large bump on the arm. She denies any numbness, tingling, weakness, wrist or hand pain, shoulder pain, warmth, fever, chills, nausea, vomiting. - Related Data Home Medications Medication Instructions Recorded Confirmed Dextroamphetamine/Amphetamine 20 mg PO BID 08/22/14 05/07/16 [Adderall] Ibuprofen [Motrin] 600 mg PO Q6HR PRN 05/07/16 05/07/16 Previous Rx's Medication Instructions Recorded Famotidine [Pepcid] 20 mg PO BID tab 05/10/16 LORazepam [Ativan] 0.5 mg PO TID PRN #30 tab 05/10/16 Morphine Sulfate ER [Ms Contin] 15 mg PO Q12HR tablet 05/10/16 Morphine Sulfate ER [Ms Contin] 15 mg PO Q12HR #30 tab 05/10/16 Ondansetron [Zofran] 4 mg PO Q8HR PRN #30 tab 05/10/16 Ibuprofen [Motrin] 600 mg PO Q8HR PRN #30 tab 07/11/21 Allergies Allergy/AdvReac Type Severity Reaction Status Date / Time topiramate [From Topamax] Allergy Swelling Verified 07/12/21 18:49 Review of Systems ROS Statement: Those systems with pertinent positive or pertinent negative responses have been documented in the HPI. ROS Other: All systems not noted in ROS Statement are negative. Past Medical History Past Medical History: CVA/TIA, GERD/Reflux, Thyroid Disorder Additional Past Medical History / Comment(s): MANY PROBLEMS SINCE A-V MALFORMATION WAS DISCOVERED: CHRONIC HEADACHES, STROKES, LOSS OF PERIPHERAL VISION, HX:PEPTIC ULCER. THYROID NODULES. HAS SOME DAMAGE FROM GAMMA KNIFE PROCEDURE. SPENT FROM AGE 12 TO 17 IN [facility] [place] History of Any Multi-Drug Resistant Organisms: None Reported Past Surgical History: Cholecystectomy Additional Past Surgical History / Comment(s): TREATMENT OF A-V MALFORMATION with a gamma knife Past Anesthesia/Blood Transfusion Reactions: No Reported Reaction, Motion Sickness Past Psychological History: Depression Smoking Status: Current every day smoker Past Alcohol Use History: None Reported Past Drug Use History: None Reported - Past Family History Father Family Medical History: Congestive Heart Failure (CHF), Myocardial Infarction ([place]) Mother Family Medical History: Diabetes Mellitus, Myocardial Infarction ([place]) General Exam Limitations: no limitations General appearance: alert, in no apparent distress Head exam: Present: atraumatic, normocephalic, normal inspection Eye exam: Present: normal appearance, EOMI. Absent: scleral icterus Neck exam: Present: normal inspection Right Forearm Wrist exam: Present: tenderness, swelling (Large hematoma on the medial edge of the forearm), abrasion (Abrasion from where patient hit her arm on the stone fireplace, there is a small blister over the abrasion), ecchymosis. Absent: normal inspection, full ROM, crepitus, tenderness over anatomical snuff box Vascular: Present: normal capillary refill, radial pulse (Palpated). Absent: vascular compromise Neurological exam: Present: alert, oriented X3, CN II-XII intact Psychiatric exam: Present: normal affect, normal mood Course Vital Signs 07/12/21 07/12/21 18:43 22:34 Temperature 98.9 F 98.6 F Pulse Rate 112 H 83 Respiratory 20 18 Rate Blood Pressure 137/85 174/82 O2 Sat by Pulse 98 100 Oximetry Medical Decision Making - Medical Decision Making Patient is a 46-year-old female presenting for reevaluation of forearm injury. Last night she states she fell and hit her forearm on the stone fireplace, she was evaluated here and was told there is no fracture and to follow-up with PCP and orthopedics. Due to increased pain and swelling she is very presenting for repeat x-rays. On examination there is full sensation and strength. She has limited range of motion secondary to pain and swelling. There is a large hematoma over the medial aspect of the forearm and extensive swelling near the elbow. Radial pulse is palpated. X-ray shows no acute fracture or dislocation of the forearm or elbow. Educated the patient on these findings. I provided her with a bandage and Mahendra wrap, instructed her to utilize rest, ice, compression, and elevation for pain and swelling control. Use Motrin and Tylenol as needed for pain control. Follow-up with PCP this week. Follow-up with orthopedics if needed. Report back to ER if any new or worsening symptoms. I discussed return parameters and I answered all questions. Patient conveyed verbal understanding and agreed to the plan. I discussed this case with my attending Dr. Oates Disposition Clinical Impression: Hematoma Disposition: HOME SELF-CARE Condition: Good Instructions (If sedation given, give patient instructions): Hematoma (ED) Additional Instructions: Follow-up with PCP this week in orthopedics if needed. Report back to ER if any worsening symptoms. Compresses, ice, elevate, rest the extremity. Take Motrin Tylenol as needed for pain control. Keep any wounds clean and dry and covered. Is patient prescribed a controlled substance at d/c from ED?: No Referrals: Natalee Mancia MD [Primary Care Provider] - 1-2 days Time of Disposition: 22:04
--- NOTE | 2021-07-12 21:28 | XR ---
EXAMINATION TYPE: XR forearm RT DATE OF EXAM: 07/12/2021 COMPARISON: Yesterday HISTORY: Trauma and swelling TECHNIQUE: 2 views FINDINGS: There is some soft tissue swelling of the proximal forearm. I see no evidence of focal bone destruction. Radius and ulna appear intact. Elbow joint is anatomic. IMPRESSION: Soft tissue swelling. No fracture seen. Swelling similar to exam yesterday.
--- NOTE | 2021-07-12 21:30 | XR ---
EXAMINATION TYPE: XR elbow complete RT DATE OF EXAM: 07/12/2021 COMPARISON: NONE HISTORY: Pain TECHNIQUE: 3 view FINDINGS: There is soft tissue swelling of the proximal forearm. Elbow joint is anatomic. I see no fr acture nor dislocation. No sign of elbow joint effusion. IMPRESSION: Soft tissue swelling. No fracture seen. IMPRESSION:
[2021-07-12 22:36] VITALS: BP 174/82; PULSE 83; RESP 18; TEMP 98.6
== END 2021-07-12 22:33 | disposition home or self-care (01) ==
LOC: EC 18:19
DX: S40.021A Contusion of right upper arm, initial encounter (principal); F17.200 Nicotine dependence, unspecified, uncomplicated; Z88.8 Allergy status to other drugs, medicaments and biological substances; W01.0XXA Fall on same level from slipping, tripping and stumbling without subsequent striking against object, initial encounter
CPT/HCPCS: 73080; 73090; 99283; 96372; J1885